=== PATIENT | male | born 1990 | race Asian ===

== ENCOUNTER 2017-12-30 15:24 | Emergency (ER) | payer OTHER ==
[~2017-12-30] VITALS: Ht 167.6 cm; Wt 59.0 kg
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
[2017-12-30 15:29] VITALS: BP 107/73
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
--- NOTE | 2017-12-30 16:00 | NUR ---
Dr. Hurtado at bedside.
[2017-12-30 16:17] VITALS: BP 115/75
--- NOTE | 2017-12-30 16:17 | NUR ---
Patient discharged with v/s stable. Written and verbal after care instructions given and explained. Patient verbalized understanding. Ambulatory with steady gait. All questions addressed prior to discharge. Advised to follow up with PMD.
== END 2017-12-30 16:17 | disposition home or self-care (01) ==
LOC: MED 15:24
DX: S16.1XXA Strain of muscle, fascia and tendon at neck level, initial encounter (principal); S39.012A Strain of muscle, fascia and tendon of lower back, initial encounter; V43.62XA Car passenger injured in collision with other type car in traffic accident, initial encounter; Y93.89 Activity, other specified; Y92.89 Other specified places as the place of occurrence of the external cause; Y99.8 Other external cause status
CPT/HCPCS: 99283

== ENCOUNTER 2023-03-31 06:13 | Day surgery (SDC) | payer OTHER ==
[~2023-03-31] VITALS: Ht 167.6 cm; Wt 67.1 kg
[2023-03-31] MEDS ORDERED: ACETAMINOPHEN 100 ML IV ONE (07:51)
[2023-03-31] MEDS ORDERED: PROPOFOL 200 MG/20 ML VIAL IV ONE ×2 (07:55→08:38)
[2023-03-31] MEDS ORDERED: MIDAZOLAM 2 MG/2 ML VIAL ONE (08:33)
[2023-03-31] MEDS ORDERED: fentaNYL citrate 0.05 MG/ML VIAL ONE (08:33)
[2023-03-31] MEDS: BUPIVACAINE-MPF 0.25% 30 ML VIAL INJ ONE (08:49)
[2023-03-31] MEDS: LIDOCAINE/EPI 1% 1:100000 20 ML VIAL INJ ONE (08:49)
== END 2023-03-31 11:15 | disposition home or self-care (01) ==
LOC: MDS 06:13 → MMU 06:39 → MDS 11:15
PROVIDERS: ATTEND Surgery
DX: K64.8 Other hemorrhoids (principal); Z79.899 Other long term (current) drug therapy; Z98.890 Other specified postprocedural states
CPT/HCPCS: 46260; 71045; J2001; J2250; J2704; J3010; J3490